=== PATIENT | female | born 1960 | race Caucasian/White ===

== ENCOUNTER → 2018-06-03 | Outpatient (CLI) | payer BC ==
[~2018-06-03] MED LIST: Armour Thyroid15 MG; DHEA 10 MG TAB1 EACH PO; EC-Naprosyn500 MG PO; ESTR2 PO; IBUP800 PO; PROG100 PO; Striant30 MG PO
== END | disposition home or self-care (01) ==
LOC: LAB SHORT 10:48 → PLD 10:48
DX: N95.0 Postmenopausal bleeding (principal)
CPT/HCPCS: 88305

== ENCOUNTER 2018-08-05 10:49 | Day surgery (SDC) | payer BC ==
[~2018-08-05] VITALS: Ht 165.1 cm; Wt 58.8 kg
[~2018-08-05 10:49] MED LIST changes: +FLORADIX; +GABA100 PO; +GABA300 PO; +KETOTIFEN PO; +STRESS FORMULA PO
[2018-08-05] MEDS ORDERED: Cyclobenzaprine5 MG PO (11:19)
[2018-08-05] MEDS ORDERED: CHOL10002 (11:22)
[2018-08-05] MEDS ORDERED: ZOLP5 (11:22)
[2018-08-05] MEDS ORDERED: T3/T4 SR (11:27)
--- NOTE | 2018-08-05 12:27 | NUR ---
08/05/18 1227 Kirsten Pressley PT DENIES BETADINE AND TRAZADONE ALLERGY
--- NOTE | 2018-08-05 13:35 | NUR ---
08/05/18 1335 Olga Rivera at 1315 assumed care of pt from [facility].ERF, report received.
== END 2018-08-05 14:15 | disposition home or self-care (01) ==
LOC: ORSCSDS 10:49
PROVIDERS: Obstetrics & Gynecology
PROC: 0UJD8ZZ Inspection of Uterus and Cervix, Via Natural or Artificial Opening Endoscopic (ICD-10-PCS; principal; 2018-08-05 12:00)
PROC: 0UDB7ZX Extraction of Endometrium, Via Natural or Artificial Opening, Diagnostic (ICD-10-PCS; principal; 2018-08-05 12:00)
DX: N95.0 Postmenopausal bleeding (principal); E78.00 Pure hypercholesterolemia, unspecified; E03.9 Hypothyroidism, unspecified; D70.9 Neutropenia, unspecified; Z79.899 Other long term (current) drug therapy
CPT/HCPCS: 88305; J1100; J1885; J2250; J2405; J2704; J3010

== ENCOUNTER 2024-06-16 08:26 | Day surgery (SDC) | payer BC ==
[~2024-06-16] VITALS: Ht 165.1 cm; Wt 66.9 kg
[~2024-06-16 08:26] MED LIST changes: +CHOL10002; +Cyclobenzaprine5 MG PO; +Lactated Ringer's 1,000 ML IV ONE; +T3/T4 SR; +ZOLP5; +propofoL 50 ML IV ONE
[2024-06-16] MEDS ORDERED: LOTREXONE4.5 MG (09:19)
[2024-06-16] MEDS ORDERED: ESTRADIAL (09:24)
[2024-06-16] MEDS ORDERED: TESTOSTERO (09:24)
[2024-06-16] MEDS ORDERED: ADTHYZA (09:27)
[2024-06-16] MEDS ORDERED: Acetaminophen325 M1 (09:28)
[2024-06-16] MEDS ORDERED: IBUP400 (09:28)
[2024-06-16] MEDS ORDERED: Cyclobenzaprine5 MG (09:28)
[2024-06-16] MEDS ORDERED: Lactated Ringer's 1,000 ML IV ONE (09:53)
[2024-06-16 11:14] VITALS: BP 99/69
== END 2024-06-16 11:23 | disposition home or self-care (01) ==
LOC: ORSCSDS 08:26
PROVIDERS: Surgery
PROC: 0DJD8ZZ Inspection of Lower Intestinal Tract, Via Natural or Artificial Opening Endoscopic (ICD-10-PCS; principal; 2024-06-16 09:45)
DX: Z12.11 Encounter for screening for malignant neoplasm of colon (principal); F32.A Depression, unspecified; E78.00 Pure hypercholesterolemia, unspecified; E03.9 Hypothyroidism, unspecified; Z79.899 Other long term (current) drug therapy
CPT/HCPCS: J2704; J7120